=== PATIENT | male | born 1945 | race Caucasian/White ===

== ENCOUNTER 2017-08-20 20:43 | Inpatient (IN) | payer MEDICARE, BC ==
[~2017-08-20] VITALS: Ht 185.4 cm; Wt 69.4 kg
[2017-08-20 21:30] VITALS: BP 113/82
[2017-08-20] MEDS ORDERED: MAG HYDROX/AL HYDROX/SIMETH 30 ML UDC PO PRN (21:30)
[2017-08-20] MEDS ORDERED: TEMAZEPAM 7.5 MG CAPSULE PO PRN (21:30)
[2017-08-20] MEDS ORDERED: ACETAMINOPHEN 325 MG TABLET PO PRN (21:30)
[2017-08-20] MEDS ORDERED: MAGNESIUM HYDROXIDE 30 ML UDC PO PRN (21:30)
[2017-08-20] MEDS ORDERED: clonazePAM 0.5 MG TABLET PO PRN (21:30)
--- NOTE | 2017-08-20 21:30 | NUR ---
ADMITTED A 72Y/O MALE FROM [facility], ON 5150 HOLD, BASED ON HOLD, PATIENT HAS CHRONIC DEPRESSION AND NOT BEEN CARING FOR HIMSELF. SON JOSE IS CONCERNED FOR PATIENTS SAFETY HE HAS NOT BEEN EATING AND HAS BEEN SEVERELY DEPRESSED AND HOPELESS. HE WAS REFUSING ALL CARE FROM HIS CAREGIVERS AND HE WAS LAYING IN HIS FECES, NOT EATING NOR DRINKING DESPITE PROMPTS FROM 24 HOUR CAREGIVERS. PATIENT ADMITTING DX. OF PSYCHOSIS AND MEDICAL DX. DEPRESSION AND MEDICAL DX. OF HYPERLIPIDEMIA, VITAMIN B12 DEFICIENCY AND HISTORY OF HYPERTENSION. PATIENT B/B AMBULANCE AND TRANSPORTED TO BED WITH 2 PERSONS ASSIST. UPON FACE TO FACE EVALUATION, PATIENT APPEARED CONFUSED, CALM, GUARDED, EASILY AGITATED, DISORGANIZED, DEPRESSED AND IRRITABLE. NO SOB, NO ACUTE DISTRESS, BREATHING EVEN AND UNLABORED, DENIES PAIN AND DISCOMFORT, HEAD TO TOE ASSESSMENT DONE, SKIN CLEAR, PICTURE DONE, PATIENT UNABLE TO SIGN PAPERWORK, BELONGINGS INSPECTED FOR CONTRABAND CHECK. NOTIFIED DR. BLANKENSHIP ABOUT THE ADMISSION. KEPT CLEAN, DRY AND COMFORTABLE, WILL CONTINUE TO MONITOR [id number] FOR SAFETY
[2017-08-20 23:18] VITALS: BP 113/82
[2017-08-21] MEDS ORDERED: LACT1CAP39 PO (00:37)
[2017-08-21] MEDS ORDERED: RIVA10TA PO (00:37)
[2017-08-21] MEDS ORDERED: SIMV40TA5 PO (00:37)
[2017-08-21] MEDS ORDERED: DOCU100C36 PO (00:37)
[2017-08-21] MEDS ORDERED: NORT25CA PO (00:37)
[2017-08-21] MEDS ORDERED: MELA3TAB PO (00:37)
[2017-08-21] MEDS ORDERED: OXCA150T5 PO (00:37)
[2017-08-21] MEDS ORDERED: MULT-1196 PO (00:37)
[2017-08-21] MEDS ORDERED: CLON0.5T4 PO (00:37)
[2017-08-21] MEDS ORDERED: TRAZ-144 PO (00:37)
[2017-08-21] MEDS ORDERED: ARIP5TAB10 PO (00:37)
[2017-08-21] MEDS ORDERED: DULO30CA2 PO (00:37)
[2017-08-21 08:00] VITALS: BP 102/62
[2017-08-21] MEDS ORDERED: DULOXETINE HCL 30 MG CAPSULE.DR PO SCH (09:30)
[2017-08-21] MEDS: OXCARBAZEPINE 150 MG TABLET PO SCH ×2 (11:05→16:58)
[2017-08-21] MEDS: ARIPIPRAZOLE 5 MG TABLET PO SCH (11:05)
[2017-08-21 11:41] LABS: BASOPHILS % (AUTO) 0.2 % (0.0-2.0); EOSINOPHILS # (AUTO) 0.2 /CMM (0.0-0.7); EOSINOPHILS % (AUTO) 4.6 % (0.0-6.0); HEMATOCRIT 50 % (39-51); HEMOGLOBIN 16.6 g/dL (13.5-17.5); LYMPHOCYTES % (AUTO) 20.3 % (20.0-44.0); MEAN CORPUSCULAR HEMOGLOBIN 32 PG (26.0-33.0); MEAN CORPUSCULAR HGB CONC 34 g/dl (31.0-36.0); MEAN CORPUSCULAR VOLUME 94 fL (80-96); MONOCYTES # (AUTO) 0.5 /CMM (0.1-1.30); MONOCYTES % (AUTO) 9.1 % (2.0-12.0); NEUTROPHILS # (AUTO) 3.3 /CMM (1.8-8.9); NEUTROPHILS % (AUTO) 65.8 % (43.0-81.0); PLATELET COUNT (AUTO) 215 /CMM (150-450); RDW COEFFICIENT OF VARIATION 14.5 (11.5-15.0); RED BLOOD CELL COUNT(AUTO) 5.28 MIL/uL (4.5-6.0); WHITE BLOOD COUNT (AUTO) 5.1 K/uL (4.3-11.0)
[2017-08-21 12:01] LABS: ALBUMIN 3.6 g/dL (3.4-5.0); BILIRUBIN,TOTAL 0.5 mg/dL (0.2-1.0); CREATININE 1.1 mg/dL (0.6-1.3); POTASSIUM 3.5 mmol/L (3.5-5.1); TOTAL PROTEIN, SERUM 7.1 g/dL (6.4-8.2)
[2017-08-21 12:08] LABS: THYROID STIMULATING HORMONE 1.281 uIU/mL (0.358-3.74)
--- NOTE | 2017-08-21 13:11 | NUR ---
Received pt. awake in beds and smells BM, Pt. is confused and disheveled. CATTLE FARMER cleaned up the pt., no distress and no agitation noted. Will continue to monitor for safety.
--- NOTE | 2017-08-21 13:53 | NUR ---
Dr. Mcclellan made aware to reconcile meds and said she will reconcile.
[2017-08-21 16:00] VITALS: BP 114/60
[2017-08-21] MEDS: DOCUSATE SODIUM 100 MG CAPSULE PO SCH (16:58)
[2017-08-21] MEDS ORDERED: RIVAROXABAN 10 MG TABLET PO ONE (17:00)
--- NOTE | 2017-08-21 19:30 | NUR ---
GPS RN NOTE, RECEIVED PATIENT AWAKE AND IN BED, NO S/S OR COMPLAINTS OF PAIN AT THIS TIME. PATIENT IS DISPLAYING NO S/S OF APPARENT DISTRESS AT THIS TIME. PATIENT BREATHING IS UNLABORED WITH EQUAL RISE AND FALL OF THE CHEST. PATIENT IS ALERT AND ORIENTED X1 ON ROOM AIR WITH A SPO2 OF 92 %. PATIENT IS MED COMPLAINT, DISORGANIZED, ANXIOUS, IRRITABLE, CONFUSED AT TIMES, AND NEEDS REORIENTATION. PATIENT DENIES SUICIDE IDEATIONS AND HOMICIDAL IDEATIONS AT THIS TIME. PATIENT ASSISTED WITH TURNING AND REPOSITIONING Q2HR AND PRN FOR COMFORT AND CIRCULATION. PATIENT HAS NO NEEDS AT THIS TIME. PATIENT EDUCATED ON THE USE OF THE CALL MATTA. PATIENT SIDE RAILS ARE UP X 2, BED IS LOCKED AND LOW, AND I WILL CONTINUE TO MONITOR THIS PATIENT Q 15 MIN WITH THE HELP OF STAFF.
[2017-08-21 20:03] VITALS: BP 94/50
[2017-08-21] MEDS: SIMVASTATIN 40 MG TABLET PO SCH (21:05)
[2017-08-21] MEDS: TRAZODONE 50 MG TABLET PO SCH (21:05)
[2017-08-22 08:00] VITALS: BP 141/65
[2017-08-22] MEDS: OXCARBAZEPINE 150 MG TABLET PO SCH ×2 (08:07→16:42)
[2017-08-22] MEDS: ARIPIPRAZOLE 5 MG TABLET PO SCH (08:07)
[2017-08-22] MEDS: DOCUSATE SODIUM 100 MG CAPSULE PO SCH ×2 (08:10→16:42)
[2017-08-22] MEDS: ACIDOPHILUS/BULGARICUS 1 EACH TAB.CHEW PO SCH (08:53)
[2017-08-22] MEDS: MULTIPLE VIT (LYCOPENE/FA/MV,CA,IRON,MIN/LUT)1 TAB PO SCH (08:53)
--- NOTE | 2017-08-22 15:25 | NUR ---
SW attempted to complete pts assessment on this date, however pt appeared ill, lethargic and confused. Pt was unable to answer any questions (i.e. pts speech was slurred and pt mumbled). Pt was severely incoherent. Pt was a poor historian. SW called Aleksandr Whitaker ([phone]), pts son for collateral information however was unable to speak to him. SW left a message asking for a callback. SW will follow up to complete pts assessment to ensure pt is safely and properly placed.
[2017-08-22 16:00] VITALS: BP 116/66
[2017-08-22] MEDS: RIVAROXABAN 10 MG TABLET PO SCH (16:43)
--- NOTE | 2017-08-22 19:30 | NUR ---
GPS RN NOTE, RECEIVED PATIENT AWAKE AND IN BED, NO S/S OR COMPLAINTS OF PAIN AT THIS TIME. PATIENT IS DISPLAYING NO S/S OF APPARENT DISTRESS AT THIS TIME. PATIENT BREATHING IS UNLABORED WITH EQUAL RISE AND FALL OF THE CHEST. PATIENT IS ALERT AND ORIENTED X1 ON ROOM AIR WITH A SPO2 OF 93%. PATIENT HAS HIS SON AT BEDSIDE. PATIENT IS MED COMPLAINT, DISORGANIZED, ANXIOUS, IRRITABLE, CONFUSED AT TIMES, AND NEEDS REORIENTATION. PATIENT DENIES SUICIDE IDEATIONS AND HOMICIDAL IDEATIONS AT THIS TIME. PATIENT ASSISTED WITH TURNING AND REPOSITIONING Q2HR AND PRN FOR COMFORT AND CIRCULATION. PATIENT HAS NO NEEDS AT THIS TIME. PATIENT EDUCATED ON THE USE OF THE CALL MATTA. PATIENT SIDE RAILS ARE UP X 2, BED IS LOCKED AND LOW, AND I WILL CONTINUE TO MONITOR THIS PATIENT Q 15 MIN WITH THE HELP OF STAFF.
[2017-08-22 20:03] VITALS: BP 100/52
[2017-08-22] MEDS: SIMVASTATIN 40 MG TABLET PO SCH (21:12)
[2017-08-22] MEDS: TRAZODONE 50 MG TABLET PO SCH (21:12)
[2017-08-23 08:00] VITALS: BP 99/69
[2017-08-23] MEDS: ARIPIPRAZOLE 5 MG TABLET PO SCH (09:35)
[2017-08-23] MEDS: DOCUSATE SODIUM 100 MG CAPSULE PO SCH ×2 (09:35→17:18)
[2017-08-23] MEDS: OXCARBAZEPINE 150 MG TABLET PO SCH ×2 (09:35→17:18)
[2017-08-23] MEDS: ACIDOPHILUS/BULGARICUS 1 EACH TAB.CHEW PO SCH (09:35)
[2017-08-23] MEDS: MULTIPLE VIT (LYCOPENE/FA/MV,CA,IRON,MIN/LUT)1 TAB PO SCH (09:36)
--- NOTE | 2017-08-23 11:27 | NUR ---
Initial Discharge Plan: Pt resides at the [facility], [address] [place] [address] . SW spoke to pts son, Aleksandr Whitaker for collateral information. Pt was incoherent, lethargic and unable to provide information to complete the assessment. Pts son, Aleksandr was open to looking into SNF for placement as he understands his father requires a higher level of care. SW will follow up to ensure pt is safely and properly discharged.
--- NOTE | 2017-08-23 11:29 | NUR ---
Discharge Planning: SW faxed inquiry (face sheet, medical H&P, P&P, and medication list) to [facility], [address] [place] [address], [place] [address]; and fax# . SW will follow up to ensure pt is properly and safely placed.
--- NOTE | 2017-08-23 15:03 | NUR ---
Discharge Planning: SW requested PT evaluation on this date for discharge planning purposes. Pt has possible placement to [facility] (i.e. pending pt evaluation). SW will follow up to ensure pt is safely and properly discharged.
[2017-08-23 16:09] VITALS: BP 100/59
[2017-08-23] MEDS: RIVAROXABAN 10 MG TABLET PO SCH (17:22)
--- NOTE | 2017-08-23 18:49 | NUR ---
GPS CLOSING NOTE, PATIENT COMPLIANT WITH TX. NO S/S OF INFECTION, DISTRESS, SI OR HI. PATIENT CALM, AOX2, AMBULATES TO BATHROOM WITH ASSISTANCE. BED LOW, SIDE RAILS UP X4, VS STABLE. PATIENT PLACED ON 14 DAY HOLD PER MD ORDER.
[2017-08-23 20:02] VITALS: BP 101/60
[2017-08-23] MEDS: SIMVASTATIN 40 MG TABLET PO SCH (21:14)
[2017-08-23] MEDS: TRAZODONE 50 MG TABLET PO SCH (21:14)
[2017-08-24 07:58] VITALS: BP 117/54
[2017-08-24] MEDS: OXCARBAZEPINE 150 MG TABLET PO SCH ×2 (08:24→16:53)
[2017-08-24] MEDS: DOCUSATE SODIUM 100 MG CAPSULE PO SCH ×2 (08:24→16:53)
[2017-08-24] MEDS: ACIDOPHILUS/BULGARICUS 1 EACH TAB.CHEW PO SCH (08:24)
[2017-08-24] MEDS: ARIPIPRAZOLE 5 MG TABLET PO SCH (08:24)
[2017-08-24] MEDS: MULTIPLE VIT (LYCOPENE/FA/MV,CA,IRON,MIN/LUT)1 TAB PO SCH (08:24)
[2017-08-24 16:03] VITALS: BP 119/54
[2017-08-24] MEDS: RIVAROXABAN 10 MG TABLET PO SCH (16:54)
[2017-08-24 20:19] VITALS: BP 125/83
[2017-08-24] MEDS: TRAZODONE 50 MG TABLET PO SCH (21:27)
[2017-08-24] MEDS: SIMVASTATIN 40 MG TABLET PO SCH (21:27)
[2017-08-25 08:00] VITALS: BP_SYST 112; BP_SYST 94; BP_DIAS 49; BP_DIAS 68
[2017-08-25] MEDS: MULTIPLE VIT (LYCOPENE/FA/MV,CA,IRON,MIN/LUT)1 TAB PO SCH (08:19)
[2017-08-25] MEDS: OXCARBAZEPINE 150 MG TABLET PO SCH ×2 (08:19→16:31)
[2017-08-25] MEDS: ACIDOPHILUS/BULGARICUS 1 EACH TAB.CHEW PO SCH (08:19)
[2017-08-25] MEDS: ARIPIPRAZOLE 5 MG TABLET PO SCH (08:20)
[2017-08-25] MEDS: DOCUSATE SODIUM 100 MG CAPSULE PO SCH ×2 (08:55→16:34)
--- NOTE | 2017-08-25 08:55 | NUR ---
COLACE NOT ADMINISTERED, YESTERDAY ON 7A-7P PT. HAD 3 BM'S AND 7P-7A PT HAD 1 BM AND WILL CONTINUE TO MONITOR.
[2017-08-25 16:00] VITALS: BP 107/66
[2017-08-25] MEDS: RIVAROXABAN 10 MG TABLET PO SCH (16:32)
[2017-08-25 20:00] VITALS: BP 122/78
[2017-08-25] MEDS: SIMVASTATIN 40 MG TABLET PO SCH (21:55)
[2017-08-25] MEDS: MIRTAZAPINE 15 MG TABLET PO SCH (21:55)
[2017-08-25] MEDS: TRAZODONE 50 MG TABLET PO SCH (21:55)
[2017-08-26 08:00] VITALS: BP 94/49
[2017-08-26] MEDS: MULTIPLE VIT (LYCOPENE/FA/MV,CA,IRON,MIN/LUT)1 TAB PO SCH (09:04)
[2017-08-26] MEDS: DOCUSATE SODIUM 100 MG CAPSULE PO SCH ×2 (09:04→17:24)
[2017-08-26] MEDS: OXCARBAZEPINE 150 MG TABLET PO SCH ×2 (09:04→17:24)
[2017-08-26] MEDS: ARIPIPRAZOLE 5 MG TABLET PO SCH (09:05)
[2017-08-26] MEDS: ACIDOPHILUS/BULGARICUS 1 EACH TAB.CHEW PO SCH (09:05)
--- NOTE | 2017-08-26 11:06 | NUR ---
Discharge Planning: [facility] who informed that pt would not be accepted to their facility as he did not meet criteria (based on pt evaluation). SW will follow up by faxing inquiries to other facilities for placement purposes.
--- NOTE | 2017-08-26 11:14 | NUR ---
Discharge Planning: NAHID faxed inquiries (face sheet, medical H&P, P&P, and medication list) to the following facilities: [facility], [address] [place] [address]; and fax # [facility], [address] [place] [address]; and fax # [facility], [address] [facility] [address]; and fax# SW will follow up with facilities to ensure pt is safely and properly placed.
--- NOTE | 2017-08-26 11:19 | NUR ---
Discharge Planning: NAHID received a call from Saray from [facility], [address] [address]; who agreed to accept pt once she is ready to discharge. NAHID informed Saray that pt would be ready to discharge on 08/29/17. NAHID will make arrangements to ensure pt is safely and properly discharged on 08/29/17.
--- NOTE | 2017-08-26 11:26 | NUR ---
Discharge Planning: SW contacted pts son Aleksandr Whitaker ([phone]) to discuss pts discharge plan. NAHID informed Aleksandr the pt would be discharging to [facility] on 08/29/17. Pts son was unable to speak (i.e. he was in a meeting) and informed SW that he would be calling back for the information. NAHID will follow up.
[2017-08-26 16:06] VITALS: BP 97/60
[2017-08-26] MEDS: RIVAROXABAN 10 MG TABLET PO SCH (17:25)
[2017-08-26 20:00] VITALS: BP 103/58
[2017-08-26] MEDS: MIRTAZAPINE 15 MG TABLET PO SCH (21:53)
[2017-08-26] MEDS: SIMVASTATIN 40 MG TABLET PO SCH (21:53)
[2017-08-26] MEDS: TRAZODONE 50 MG TABLET PO SCH (21:53)
[2017-08-27 08:00] VITALS: BP 90/59
[2017-08-27] MEDS: MULTIPLE VIT (LYCOPENE/FA/MV,CA,IRON,MIN/LUT)1 TAB PO SCH (08:29)
[2017-08-27] MEDS: ACIDOPHILUS/BULGARICUS 1 EACH TAB.CHEW PO SCH (08:29)
[2017-08-27] MEDS: DOCUSATE SODIUM 100 MG CAPSULE PO SCH ×2 (08:29→17:00)
[2017-08-27] MEDS: OXCARBAZEPINE 150 MG TABLET PO SCH ×2 (08:29→17:00)
[2017-08-27] MEDS: ARIPIPRAZOLE 5 MG TABLET PO SCH (08:29)
[2017-08-27] MEDS: BOOST PLUS FOOD-VANILLA 237 ML BOX PO SCH (08:36)
[2017-08-27 16:00] VITALS: BP 98/60
[2017-08-27] MEDS: RIVAROXABAN 10 MG TABLET PO SCH (17:01)
[2017-08-27 19:59] LABS: BASOPHILS % (AUTO) 0.1 % (0.0-2.0); EOSINOPHILS # (AUTO) 0.1 /CMM (0.0-0.7); EOSINOPHILS % (AUTO) 1.2 % (0.0-6.0); HEMATOCRIT 42 % (39-51); HEMOGLOBIN 14.5 g/dL (13.5-17.5); LYMPHOCYTES # (AUTO) 1.5 /CMM (0.8-4.8); LYMPHOCYTES % (AUTO) 27.2 % (20.0-44.0); MEAN CORPUSCULAR HEMOGLOBIN 31 PG (26.0-33.0); MEAN CORPUSCULAR HGB CONC 34 g/dl (31.0-36.0); MEAN CORPUSCULAR VOLUME 91 fL (80-96); MONOCYTES # (AUTO) 0.5 /CMM (0.1-1.30); MONOCYTES % (AUTO) 8.8 % (2.0-12.0); NEUTROPHILS # (AUTO) 3.3 /CMM (1.8-8.9); NEUTROPHILS % (AUTO) 62.7 % (43.0-81.0); PLATELET COUNT (AUTO) 189 /CMM (150-450); RED BLOOD CELL COUNT(AUTO) 4.65 MIL/uL (4.5-6.0); WHITE BLOOD COUNT (AUTO) 5.4 K/uL (4.3-11.0)
[2017-08-27 20:00] VITALS: BP 90/60
[2017-08-27 20:23] LABS: CALCIUM, SERUM 9.6 mg/dL (8.5-10.1); CREATININE 1.2 mg/dL (0.6-1.3); POTASSIUM 3.9 mmol/L (3.5-5.1)
[2017-08-27] MEDS: SIMVASTATIN 40 MG TABLET PO SCH (22:05)
[2017-08-27] MEDS: TRAZODONE 50 MG TABLET PO SCH (22:05)
[2017-08-27] MEDS: MIRTAZAPINE 15 MG TABLET PO SCH (22:05)
[2017-08-28 08:04] VITALS: BP 100/53
[2017-08-28] MEDS: ACIDOPHILUS/BULGARICUS 1 EACH TAB.CHEW PO SCH (08:20)
[2017-08-28] MEDS: DOCUSATE SODIUM 100 MG CAPSULE PO SCH ×2 (08:20→17:43)
[2017-08-28] MEDS: ARIPIPRAZOLE 5 MG TABLET PO SCH (08:20)
[2017-08-28] MEDS: OXCARBAZEPINE 150 MG TABLET PO SCH ×2 (08:20→17:43)
[2017-08-28] MEDS: MULTIPLE VIT (LYCOPENE/FA/MV,CA,IRON,MIN/LUT)1 TAB PO SCH (08:20)
[2017-08-28] MEDS: BOOST PLUS FOOD-VANILLA 237 ML BOX PO SCH (09:00)
[2017-08-28 16:42] VITALS: BP 99/59
[2017-08-28] MEDS: RIVAROXABAN 10 MG TABLET PO SCH (17:43)
[2017-08-28 20:00] VITALS: BP 102/68
[2017-08-28] MEDS: SIMVASTATIN 40 MG TABLET PO SCH (21:08)
[2017-08-28] MEDS: MIRTAZAPINE 15 MG TABLET PO SCH (21:08)
[2017-08-28] MEDS: TRAZODONE 50 MG TABLET PO SCH (21:08)
[2017-08-29 08:00] VITALS: BP 104/60
[2017-08-29] MEDS: ACIDOPHILUS/BULGARICUS 1 EACH TAB.CHEW PO SCH (08:28)
[2017-08-29] MEDS: OXCARBAZEPINE 150 MG TABLET PO SCH ×2 (08:28→16:38)
[2017-08-29] MEDS: MULTIPLE VIT (LYCOPENE/FA/MV,CA,IRON,MIN/LUT)1 TAB PO SCH (08:28)
[2017-08-29] MEDS: DOCUSATE SODIUM 100 MG CAPSULE PO SCH ×2 (08:28→16:38)
[2017-08-29] MEDS: ARIPIPRAZOLE 5 MG TABLET PO SCH (08:28)
[2017-08-29] MEDS: BOOST PLUS FOOD-VANILLA 237 ML BOX PO SCH (09:00)
--- NOTE | 2017-08-29 11:54 | NUR ---
Discharge Planning: NAHID spoke to pts son Aleksandr Whitaker who asked SW to fax inquiry to [facility] in [facility] for discharge planning purposes. Pts son would like pt closer to him. Per pts son, he had made some phone calls during the weekend looking for facilities closer to his home. Pts son agreed that if [facility] did not accept him he would be "fine" with discharging to [facility]. NAHID faxed inquiry (face sheet, medical H&P, P&P, medication list) to [facility] attention to [place]. NAHID will follow up with facility for discharge planning purposes.
--- NOTE | 2017-08-29 12:24 | NUR ---
Discharge Planning: SW faxed inquiry (face sheet, medical H&P, P&P, medication list) to [facility] and fax # to admissions department. NAHID will follow up with facility.
[2017-08-29 16:00] VITALS: BP 109/58
[2017-08-29] MEDS: RIVAROXABAN 10 MG TABLET PO SCH (16:42)
--- NOTE | 2017-08-29 19:30 | NUR ---
GPS RN NOTE, RECEIVED PATIENT AWAKE AND IN BED, NO S/S OR COMPLAINTS OF PAIN AT THIS TIME. PATIENT IS DISPLAYING NO S/S OF APPARENT DISTRESS AT THIS TIME. PATIENT BREATHING IS UNLABORED WITH EQUAL RISE AND FALL OF THE CHEST. PATIENT IS ALERT AND ORIENTED X1 ON ROOM AIR WITH A SPO2 OF 95%. PATIENT IS MED COMPLAINT, DISORGANIZED, ANXIOUS, IRRITABLE, CONFUSED AT TIMES, AND NEEDS REORIENTATION. PATIENT DENIES SUICIDE IDEATIONS AND HOMICIDAL IDEATIONS AT THIS TIME. PATIENT ASSISTED WITH TURNING AND REPOSITIONING Q2HR AND PRN FOR COMFORT AND CIRCULATION. PATIENT HAS NO NEEDS AT THIS TIME. PATIENT EDUCATED ON THE USE OF THE CALL MATTA. PATIENT SIDE RAILS ARE UP X 2, BED IS LOCKED AND LOW, AND I WILL CONTINUE TO MONITOR THIS PATIENT Q 15 MIN WITH THE HELP OF STAFF.
[2017-08-29 19:46] VITALS: BP 99/63
[2017-08-29] MEDS: TRAZODONE 50 MG TABLET PO SCH (21:33)
[2017-08-29] MEDS: SIMVASTATIN 40 MG TABLET PO SCH (21:33)
[2017-08-29] MEDS: MIRTAZAPINE 15 MG TABLET PO SCH (21:34)
[2017-08-30 08:00] VITALS: BP 107/80
[2017-08-30] MEDS: MULTIPLE VIT (LYCOPENE/FA/MV,CA,IRON,MIN/LUT)1 TAB PO SCH (08:29)
[2017-08-30] MEDS: ARIPIPRAZOLE 5 MG TABLET PO SCH (08:30)
[2017-08-30] MEDS: DOCUSATE SODIUM 100 MG CAPSULE PO SCH (08:30)
[2017-08-30] MEDS: OXCARBAZEPINE 150 MG TABLET PO SCH (08:30)
[2017-08-30] MEDS: ACIDOPHILUS/BULGARICUS 1 EACH TAB.CHEW PO SCH (08:30)
[2017-08-30] MEDS: BOOST PLUS FOOD-VANILLA 237 ML BOX PO SCH (09:00)
[2017-08-30 16:00] VITALS: BP 110/68
--- NOTE | 2017-08-30 17:15 | NUR ---
GPS/RN PATIENT CLEARED FOR DISCHARGE TO [facility] BY DR BLANKENSHIP AND SHIP FITTER JULIAN. MEDICATIONS RECONCILED BY BOTH DR'S, AFTERCARE PLAN, PACKET AND MEDICATIONS EXPLAINED TO PATIENT. PATIENT REFUSED TO SIGN D/C PAPERWORK, COSIGNED BY 2 RN. BELONGINGS RETURNED TO PATIENT, SON WENT THROUGH BELONGINGS TO MAKE SURE ALL ITEMS WERE ACCOUNTED FOR. GAVE REPORT TO MIRANDA AT FACILITY. PATIENT DENIES SI/HI/AH UPON DISCHARGE, PSYCHIATRIC TREATMENT PLANS MET, PATIENT IS CALM, COOPERATIVE WITH NO AGITATION OR DISTRESS NOTED. LEFT UNIT WITH AMBULANCE TRANSPORT AT SIDE.
== END 2017-08-30 15:20 | DRG 885 ==
LOC: GPS 20:43
PROVIDERS: ADMIT Psychiatry & Neurology Psychiatry; ATTEND Psychiatry & Neurology Psychiatry
DX: F33.2 Major depressive disorder, recurrent severe without psychotic features (principal); F03.90 Unspecified dementia, unspecified severity, without behavioral disturbance, psychotic disturbance, mood disturbance, and anxiety; R45.851 Suicidal ideations; R62.7 Adult failure to thrive; Z86.711 Personal history of pulmonary embolism; Z79.899 Other long term (current) drug therapy; E78.5 Hyperlipidemia, unspecified; Z73.6 Limitation of activities due to disability; I70.0 Atherosclerosis of aorta; I10 Essential (primary) hypertension
CPT/HCPCS: 36415; 71045-TC; 80048-TC; 80053-TC; 80061-TC; 82746; 83540-TC; 84443-TC; 85025-TC; 87081-TC